=== PATIENT | male | born 1975 ===

== ENCOUNTER 2018-06-23 20:48 | Emergency (ER) | payer SELFPAY ==
[2018-06-23 20:55] VITALS: BP 152/91; PULSE 72; RESP 20; TEMP 98.4; O2SAT 97
[2018-06-23] MEDS ORDERED: Lidocaine 1% Inj (20ml) INFIL STA (21:07)
[2018-06-23] MEDS ORDERED: Tdap Vaccine 0.5 ml Vial (10-64 yrs) IM ONE ×2 (21:07→21:15)
--- NOTE | 2018-06-23 21:11 | C.PDOC ---
History Of Present Illness 42-year-old male presents to the ED with complaints of a wound to the right hand status-post falling onto some wood chips around 5pm. Patient states that a piece of wood is in his hand. States he can feel a foreign body inside the wound with movement. Patient is unsure of tetanus status. Otherwise he denies any numbness, tingling, or extremity weakness. Time Seen by Provider: 06/23/18 21:00 Chief Complaint (Nursing): Upper Extremity Problem/Injury History Per: Patient History/Exam Limitations: language barrier (Welsh, Bulgarian) Onset/Duration Of Symptoms: Hrs Current Symptoms Are (Timing): Still Present Past Medical History Reviewed: Historical Data, Nursing Documentation, Vital Signs Vital Signs: Last Vital Signs Temp 98.4 F 06/23/18 20:51 Pulse 72 06/23/18 20:51 Resp 20 06/23/18 20:51 BP 152/91 H 06/23/18 20:51 Pulse Ox 97 06/23/18 22:15 - Medical History PMH: No Chronic Diseases Family History: States: No Known Family Hx - Social History Hx Tobacco Use: Yes Hx Alcohol Use: No Hx Substance Use: No Review Of Systems Musculoskeletal: Positive for: Hand Pain Skin: Positive for: Lesions (wound to right hand, (+) foreign body) Neurological: Negative for: Weakness, Numbness, Incoordination Physical Exam - Physical Exam Appears: Well, Non-toxic, No Acute Distress Skin: Warm, Dry, No Rash Head: Atraumatic, Normacephalic Eye(s): bilateral: Normal Inspection Oral Mucosa: Moist Neck: Normal ROM Chest: Symmetrical Extremity: Normal ROM (with full ROM of all digits), Capillary Refill (less than 2 sec), No Deformity, No Swelling, Other (Abrasions to the right palm at thenar aspect, with palpable foreign body) Pulses: Left Radial: Normal, Right Radial: Normal Neurological/Psych: Oriented x3, Normal Speech, Normal Motor, Normal Sensation Gait: Steady ED Course And Treatment O2 Sat by Pulse Oximetry: 97 (RA) Pulse Ox Interpretation: Normal Medical Decision Making Medical Decision Making: Impression: Wound to right hand, rule out foreign body Plan: --Tetanus booster given --X-ray of right hand obtained --Lido 2% ordered for foreign body Progress/Updates: X-ray shows no acute fracture or dislocation. Foreign body removed manually from the wound using forceps. Keflex PO given Patient feels comfortable going home and will be discharged. Patient given follow up instructions. Rx given. Instructed to return to ER if symptoms worsen or new symptoms arise. Disposition Counseled Patient/Family Regarding: Diagnosis, Need For Followup, Rx Given - Disposition Disposition: HOME/ ROUTINE Disposition Time: 22:13 Condition: STABLE Additional Instructions: Keep wound clean and dry apply antibiotic cream take antibiotic to prevent infection Prescriptions: Cephalexin [cephalexin] 500 mg PO Q12 #10 cap Instructions: Foreign Body in Skin (DC) Forms: [employer] (Danish) Print Language: TELUGU - POA Present On Arrival: None - Clinical Impression Clinical Impression: Foreign body in hand - PA / FAMILY MEDICINE PHYSICIAN ASSISTANT / Resident Statement MD/DO has reviewed & agrees with the documentation as recorded. - Scribe Statement The provider has reviewed the documentation as recorded by the Scribe (Sujatha Pino) All medical record entries made by the Scribe were at my direction and personally dictated by me. I have reviewed the chart and agree that the record accurately reflects my personal performance of the history, physical exam, medical decision making, and the department course for this patient. I have also personally directed, reviewed, and agree with the discharge instructions and disposition. Procedures - Foreign Body Removal Consent Obtained: verbal consent Time Out Performed: No Site: right, hand Description of foreign body: other (wooden splinter) Sedation/Analgesia: other (lidocaine 2%) Technique: removal with forceps, incision made to facilitate removal, irrigation Confirmed by:: direct visualization Complications:: None Post-procedure exam: Awake, alert, Normal BP Neurovascular: Normal distal pulse, Normal capillary, Distal light touch sensation intact, Distal motor function normal, No change from pre-procedure
[2018-06-23] MEDS ORDERED: Lidocaine 2% MPF (5 ml) Inj ONE ×2 (21:15→21:55)
[2018-06-23] MEDS ORDERED: Bacitracin 500 Units/gm Oint Foilpak UD TOP ONE (22:11)
[2018-06-23] MEDS ORDERED: Bacitracin 500 Units/gm Oint Foilpak UD ONE (22:23)
--- NOTE | 2018-06-24 10:35 | RAD ---
PROCEDURE: Right Hand Radiographs. Spell HISTORY: foreign body COMPARISON: None. FINDINGS: BONES: Normal. No fracture. JOINTS: Normal. No osteoarthritic changes. SOFT TISSUES: No radiopaque foreign bodies are identified. Soft tissues appear grossly unremarkable. OTHER FINDINGS: None. IMPRESSION: Normal right hand radiographs.
== END 2018-06-23 22:30 | disposition home or self-care (01) ==
LOC: C.ER 20:48
DX: S60.551A Superficial foreign body of right hand, initial encounter (principal); W45.8XXA Other foreign body or object entering through skin, initial encounter; Z23 Encounter for immunization